=== PATIENT | female | born 1945 | race Caucasian/White ===

== ENCOUNTER 2016-03-17 22:55 | Emergency (ER) | payer MEDICARE, OTHER ==
--- NOTE | 2016-03-17 23:08 | ERPHSYRPT ---
- History of Present Illness Time Seen by Provider: 03/17/16 23:03 Source: patient Exam Limitations: no limitations Physician History: This is a 70-year-old white female she arrives with complaint of sore throat symptoms since this morning she states that this evening she began to be hoarse with her voice she also states that she was having chest heaviness with laying down approximately 40 minutes prior to arrival She has some shortness of breath she has no nausea no vomiting Past medical history includes diverticulitis, GERD, depression, endocarditis. Past surgical history includes cholecystectomy, , tonsillectomy, rhinoplasty with polyps removed. Timing/Duration: today Severity: mild Modifying Factors: Improves With: nothing Associated Symptoms: shortness of breath, chest pain, other (sore throat), No nausea, No vomiting, No abdominal pain, No heartburn, No diaphoresis, No cough, No chills, No fever, No headaches, No loss of appetite, No malaise, No rash, No syncope, No seizure, No weakness Allergies/Adverse Reactions: amoxicillin [Amoxicillin] Allergy (Mild, Verified 03/17/16 23:02) Diarrhea cephalexin monohydrate [From Keflex] Allergy (Mild, Verified 03/17/16 23:02) Diarrhea citalopram hydrobromide [From Celexa] Allergy (Mild, Verified 03/17/16 23:02) Rash itching,n/v sertraline HCl [From Zoloft] Allergy (Mild, Verified 03/17/16 23:02) Rash itching, n/v Home Medications: Cetirizine HCl [Zyrtec] 10 mg PO DAILY 12/13/13 [History] PANTOPRAZOLE 40 mg Tablet [Protonix 40MG Tablet] 40 mg PO DAILY 12/13/13 [ History] Hx Tetanus, Diphtheria Vaccination/Date Given: No Hx Influenza Vaccination/Date Given: No Hx Pneumococcal Vaccination/Date Given: No - Review of Systems Constitutional: No Fever, No Chills Eyes: No Symptoms Ears, Nose, & Throat: Throat Pain, Hoarse, No Ear Pain, No Ear Discharge, No Hearing Changes, No Tinnitus, No Nose Pain, No Nose Congestion, No Nose Discharge, No Sinus Drainage, No Epistaxis, No Mouth Pain, No Mouth Swelling, No Loose Teeth, No Throat Swelling, No Painful Swallowing, No Snoring, No Stridor Respiratory: Dyspnea, No Cough, No Cyanosis, No Dyspnea on Exertion (RODRIGUEZ), No Stridor, No Wheezing Cardiac: Chest Pain (heaviness in chest with laying down 40 minutes ago), No Edema, No Palpitations, No Syncope, No Orthopnea Abdominal/Gastrointestinal: No Abdominal Pain, No Nausea, No Vomiting, No Diarrhea Genitourinary Symptoms: No Dysuria Musculoskeletal: No Back Pain, No Neck Pain Skin: No Rash Neurological: No Dizziness, No Focal Weakness, No Sensory Changes Psychological: No Symptoms Endocrine: No Symptoms All Other Systems: Reviewed and Negative - Past Medical History Pertinent Past Medical History: Yes Neurological History: No Pertinent History ENT History: Other Cardiac History: Other Respiratory History: No Pertinent History Endocrine Medical History: No Pertinent History Musculoskeletal History: Osteoarthritis GI Medical History: Diverticulitis, GERD History: No Pertinent History Psycho-Social History: Depression Female Reproductive Disorders: No Pertinent History Other Medical History: Endocarditis - Past Surgical History Past Surgical History: Yes Cardiac: No Pertinent History Respiratory: No Pertinent History Gastrointestinal: Cholecystectomy Genitourinary: No Pertinent History Musculoskeletal: No Pertinent History Female Surgical History: Section Other Surgical History: tonsillectomy, Rhinoplasty with polyps removed, csection x2, uterine ablasion - Social History Smoking Status: Never smoker Exposure to second hand smoke: No Alcohol Use: None Drug Use: none Patient Lives Alone: No Significant Family History: hypertension - Female History Hx Now: No - Nursing Vital Signs Nursing Vital Signs: Initial Vital Signs Temperature 98.2 F Temperature Source Oral Pulse Rate [] 80 Pulse Rate 76 Respiratory Rate 14 Blood Pressure 144/93 Pain Intensity 1 - Physical Exam General Appearance: no apparent distress, alert Eye Exam: PERRL/EOMI, eyes nml inspection Ears, Nose, Throat Exam: TMs normal, pharynx normal (throat mild erythema), moist mucous membranes, pharyngeal erythema Neck Exam: normal inspection, non-tender, supple, full range of motion Respiratory Exam: normal breath sounds, lungs clear, No respiratory distress Cardiovascular Exam: regular rate/rhythm, normal heart sounds, normal peripheral pulses Gastrointestinal/Abdomen Exam: soft, normal bowel sounds, No tenderness, No mass Back Exam: normal inspection, normal range of motion, No CVA tenderness, No vertebral tenderness Extremity Exam: normal inspection, normal range of motion, pelvis stable Neurologic Exam: alert, oriented x 3, cooperative, normal mood/affect, nml cerebellar function, nml station & gait, sensation nml, No motor deficits Skin Exam: normal color, warm, dry, No rash Lymphatic Exam: No adenopathy SpO2 Interpretation: normal - Course Nursing assessment & vital signs reviewed: Yes EKG Interpreted by Me: RATE (66 bpm), Sinus Rhythm, Other (EKG, sinus rhythm, 66 bpm, axisSI/QIII pattern, no acute ST or T wave changes are noted) - Radiology Exams Chest X-ray Interpretation: Interpreted by me (no acute disease process noted), Negative, No Pneumonia, No Pneumothorax Ordered Tests: Active Orders 24 hr Category Date Time Status Director Of Rot[facility] STAT Care 03/17/16 23:36 Active EKG-ER Only STAT Care 03/17/16 23:36 Active IV Insertion STAT Care 03/17/16 23:36 Active CHEST 1 VIEW (PORTABLE) Stat Exams 03/17/16 23:36 Taken CBC W DIFF Stat Lab 03/17/16 23:30 Completed CMP Stat Lab 03/17/16 23:30 Completed CULTURE, THROAT Stat Lab 03/17/16 23:50 Received STREP SCREEN-BETA A Stat Lab 03/17/16 23:50 Completed TROPONIN Q3H Lab 03/17/16 23:25 Completed TROPONIN Q3H Lab 03/18/16 02:45 Ordered TROPONIN Q3H Lab 03/18/16 05:45 Ordered TROPONIN Q3H Lab 03/18/16 08:45 Ordered TROPONIN Q3H Lab 03/18/16 11:45 Ordered Medication Summary Discontinued Medications Generic Name Dose Route Start Last Admin Trade Name Freq PRN Reason Stop Dose Admin Aspirin 324 mg 03/17/16 23:36 03/17/16 23:48 Baby Aspirin 81 Mg Chew PO 03/17/16 23:37 324 mg STAT ONE Administration Lab/Rad Data: Laboratory Result Diagrams 03/17/16 23:30 03/17/16 23:30 Laboratory Results 03/17/16 03/17/16 03/17/16 Range/Units 23:50 23:30 23:30 WBC 5.7 (4.0-10.5) K/mm3 RBC 4.24 (4.1-5.4) M/mm3 Hgb 13.3 (12.0-16.0) gm/dl Hct 40.3 (35-47) % MCV 95.0 (78-100) fl MCH 31.4 (26-32) pg MCHC 33.0 (32-36) g/dl RDW 13.1 (11.5-14.0) % Plt Count 198 (150-450) K/mm3 MPV 10.0 H (6-9.5) fl Gran % 57.9 (36.0-66.0) % Lymphocytes % 30.9 (24.0-44.0) % Monocytes % 10.1 (0.0-12.0) % Eosinophils % 0.7 (0.00-5.0) % Basophils % 0.4 (0.0-0.4) % Basophils # 0.02 (0-0.4) Sodium 141 (136-145) mEq/L Potassium 3.8 (3.5-5.1) mEq/L Chloride 106 (98-107) mEq/L Carbon Dioxide 27.3 (21-32) mEq/L Anion Gap 11.3 (5-15) MEQ/L BUN 14 (9-20) mg/dL Creatinine 0.99 (0.55-1.30) mg/dl Estimated GFR 59 ML/MIN Glucose 136 H (70-110) MG/DL Calcium 8.7 (8.5-10.1) mg/dL Total Bilirubin 0.5 (0.2-1.0) mg/dL AST 17 (15-37) U/L ALT 17 (12-78) U/L Alkaline Phosphatase 63 (46-116) U/L Troponin I (0.000-0.056) ng/ml Serum Total Protein 6.8 (6.4-8.2) gm/dL Albumin 3.5 (3.4-5.0) g/dL Streptococcus Screen NEGATIVE (Negative) 03/17/16 Range/Units 23:25 WBC (4.0-10.5) K/mm3 RBC (4.1-5.4) M/mm3 Hgb (12.0-16.0) gm/dl Hct (35-47) % MCV (78-100) fl MCH (26-32) pg MCHC (32-36) g/dl RDW (11.5-14.0) % Plt Count (150-450) K/mm3 MPV (6-9.5) fl Gran % (36.0-66.0) % Lymphocytes % (24.0-44.0) % Monocytes % (0.0-12.0) % Eosinophils % (0.00-5.0) % Basophils % (0.0-0.4) % Basophils # (0-0.4) Sodium (136-145) mEq/L Potassium (3.5-5.1) mEq/L Chloride (98-107) mEq/L Carbon Dioxide (21-32) mEq/L Anion Gap (5-15) MEQ/L BUN (9-20) mg/dL Creatinine (0.55-1.30) mg/dl Estimated GFR ML/MIN Glucose (70-110) MG/DL Calcium (8.5-10.1) mg/dL Total Bilirubin (0.2-1.0) mg/dL AST (15-37) U/L ALT (12-78) U/L Alkaline Phosphatase (46-116) U/L Troponin I < 0.017 (0.000-0.056) ng/ml Serum Total Protein (6.4-8.2) gm/dL Albumin (3.4-5.0) g/dL Streptococcus Screen (Negative) - Progress Progress: improved Progress Note: 03/18/16 00:25 Patient with continued sore throat and hoarse voice. Patient's EKG no acute changes sinus rhythm 66 bpm S1/QIII pattern for axis no acute ST or T wave changes. Troponin is normal strep is negative chest x-ray no acute changes no acute disease process white count 5.7 hemoglobin 13 3 hematocrit 40.3 strep is negative chemistry essentially normal I've offered patient repeat troponin she does not want this. Will write for Zithromax patient has had a cough. Diagnosis pharyngitis bronchitis. Patient does not want prednisone she states this will upset her stomach. - Departure Time of Disposition: 00:27 Departure Disposition: Home Clinical Impression: Bronchitis Pharyngitis Qualifiers: Pharyngitis/tonsillitis etiology: unspecified etiology Qualified Code(s): J02.9 - Acute pharyngitis, unspecified Condition: Fair Critical Care Time: No Additional Instructions: Return home. Plenty of fluids. Zithromax Z-LAMONT as directed. Tylenol every 4 hours as needed for pain or temperature greater than 100.5. Follow-up with your family doctor. Return for acute distress or for severe symptoms. Prescriptions: Azithromycin 250 mg [Zithromax 250 MG TABLET] 0 mg PO ZPACK #6 tablet
[2016-03-17] MEDS ORDERED: BABY ASPIRIN 81 MG CHEW PO ONE (23:36)
[2016-03-17 23:41] LABS: BASOPHIL % 0.4 % (0.0-0.4); Eosinophil % 0.7 % (0.00-5.0); Granulocytes % 57.9 % (36.0-66.0); Lymphocytes % 30.9 % (24.0-44.0); Mean Corpuscular Hemoglobin 31.4 pg (26-32); Monocytes % 10.1 % (0.0-12.0); Platelet Count 198 K/mm3 (150-450); Red Blood Count 4.24 M/mm3 (4.1-5.4); Red Cell Distribution Width 13.1 % (11.5-14.0); White Blood Count 5.7 K/mm3 (4.0-10.5)
[2016-03-17 23:58] LABS: ALBUMIN 3.5 g/dL (3.4-5.0); ANION GAP 11.3 MEQ/L (5-15); BILIRUBIN,TOTAL 0.5 mg/dL (0.2-1.0); Carbon Dioxide 27.3 mEq/L (21-32); Potassium 3.8 mEq/L (3.5-5.1); Total Protein 6.8 gm/dL (6.4-8.2)
[2016-03-18] MEDS ORDERED: Zithromax 250 MG TABLET ONE (00:30)
[2016-03-18] MEDS ORDERED: Zithromax 250 MG TABLET PO ONE (00:30)
[2016-03-18] MEDS: Zithromax 250 MG TABLET PO ONE (00:33)
[2016-03-18] MEDS ORDERED: solu-MEDROL 125 MG IV ONE (00:35)
[2016-03-18] MEDS ORDERED: solu-MEDROL 125 MG ONE (00:37)
[2016-03-18 00:58] VITALS: BP 136/88; PULSE 90; O2SAT 98
[2016-03-18] MEDS ORDERED: BABY ASPIRIN 81 MG CHEW ONE (05:23)
--- NOTE | 2016-03-18 08:52 | XRAY ---
Indication: Chest pain. Comparison: December 11, 2012 Portable chest demonstrates stable blunting of the left costophrenic angle. No focal infiltrate, consolidation, or large effusion. Heart is not enlarged. Bony thorax intact again with mild osteopenia. Impression: Stable nonacute chest with chronic features.
== END 2016-03-18 00:57 | disposition home or self-care (01) ==
LOC: ED 22:55
DX: J02.9 Acute pharyngitis, unspecified (principal); J40 Bronchitis, not specified as acute or chronic
CPT/HCPCS: 36000; 36415; 71010; 80053; 84484; 85025; 87070; 87430; 93005; 93041; 96374; 99284; J2930

== ENCOUNTER 2017-05-25 09:11 | Emergency (ER) | payer MEDICARE, OTHER ==
--- NOTE | 2017-05-25 09:43 | ERPHSYRPT ---
- History of Present Illness Time Seen by Provider: 05/25/17 09:34 Source: patient, family Patient Subjective Stated Complaint: states was up on a chair last night and fell. pain to right wrist, right knee and lower leg, and left foot. denies striking head Triage Nursing Assessment: to room per w/c. skin w/d, color normal, resp easy. swelling and slight deformity noted to right wrist. good radial pulse and cap refill. no deformity noted to right knee, good pedal pulse. bruise noted to top of right foot. tender to touch. good pedal pulse Physician History: CC: fall Hx: 71 y/o patient of Dr Ross fell yesterday onto carpet while trying to climb onto a chair. Pain in right wrist and knee and left foot. No other injuries. No neck or back pain. No N/T/W. Hurts to walk. Occurred: yesterday Reason for Fall: lost balance Loss of Consciousness: no loss of consciousness Allergies/Adverse Reactions: amoxicillin [Amoxicillin] Allergy (Mild, Verified 03/17/16 23:02) Diarrhea cephalexin monohydrate [From Keflex] Allergy (Mild, Verified 03/17/16 23:02) Diarrhea citalopram hydrobromide [From Celexa] Allergy (Mild, Verified 03/17/16 23:02) Rash itching,n/v sertraline HCl [From Zoloft] Allergy (Mild, Verified 03/17/16 23:02) Rash itching, n/v Home Medications: Cetirizine HCl [Zyrtec] 10 mg PO DAILY 12/13/13 [History] PANTOPRAZOLE 40 mg Tablet [Protonix 40MG Tablet] 40 mg PO DAILY 12/13/13 [ History] Latanoprost [Xalatan] 2.5 ml OP HS 05/25/17 [History] Hx Tetanus, Diphtheria Vaccination/Date Given: No Hx Influenza Vaccination/Date Given: No Hx Pneumococcal Vaccination/Date Given: No - Review of Systems Constitutional: No Symptoms Eyes: No Vision Changes Respiratory: No Dyspnea Cardiac: No Chest Pain Abdominal/Gastrointestinal: No Abdominal Pain, No Nausea, No Vomiting Musculoskeletal: Fall, Injury, No Back Pain, No Neck Pain Skin: No Rash Neurological: No Focal Weakness, No Headache, No Parasthesia All Other Systems: Reviewed and Negative - Past Medical History Pertinent Past Medical History: Yes Neurological History: No Pertinent History ENT History: Glaucoma Cardiac History: Other Respiratory History: No Pertinent History Endocrine Medical History: No Pertinent History Musculoskeletal History: Osteoarthritis GI Medical History: Diverticulitis, GERD History: No Pertinent History Psycho-Social History: Depression Female Reproductive Disorders: No Pertinent History Other Medical History: Endocarditis - Past Surgical History Past Surgical History: Yes Cardiac: No Pertinent History Respiratory: No Pertinent History Gastrointestinal: Cholecystectomy Genitourinary: No Pertinent History Musculoskeletal: No Pertinent History Female Surgical History: Section Other Surgical History: tonsillectomy, Rhinoplasty with polyps removed, csection x2, uterine ablasion - Social History Smoking Status: Never smoker Exposure to second hand smoke: No Alcohol Use: None Drug Use: none Patient Lives Alone: No Significant Family History: hypertension - Female History Hx Now: No - Nursing Vital Signs Nursing Vital Signs: Initial Vital Signs Temperature 97.4 F 05/25/17 09:20 Pulse Rate 79 05/25/17 09:20 Respiratory Rate 16 05/25/17 09:20 Blood Pressure 156/70 05/25/17 09:20 O2 Sat by Pulse Oximetry 95 05/25/17 09:20 Pain Scale Pain Intensity 5 - Conifer Coma Score Best Eye Response (Flaco): (4) open spontaneously Best Verbal Response (Flaco): (5) oriented Best Motor Response (Flaco): (6) obeys commands Conifer Total: 15 - Physical Exam General Appearance: alert Head Injury: no evidence of injury Eye Exam: PERRL/EOMI ENT Exam: airway nml Neck Exam: supple, No mid-line tenderness Respiratory/Chest Exam: normal breath sounds, No chest tenderness Cardiovascular Exam: regular rate/rhythm Gastrointestinal Exam: soft, No tenderness, No distention Back Exam: normal inspection, No vertebral tenderness Extremity Exam: tenderness (right distal radius with some swelling, left foot MTP, right knee. ROM all intact.) Neurologic Exam: alert, oriented x 3, cooperative, sensation nml, No motor deficits Skin Exam: warm, dry, No rash SpO2 Interpretation: normal SpO2: 95 Oxygen Delivery: Room Air - Course Nursing assessment & vital signs reviewed: Yes Ordered Tests: Active Orders 24 hr Category Date Time Status Chalo Bandage Application -[facility] STAT Care 05/25/17 10:16 Active Cold Application STAT Care 05/25/17 09:38 Active Splint STAT Care 05/25/17 10:15 Active Splint STAT Care 05/25/17 10:16 Active FOOT (MINIMUM 3 VIEWS) Stat Exams 05/25/17 09:39 Taken KNEE (3 VIEWS) Stat Exams 05/25/17 09:39 Taken WRIST (MIN 3 VIEWS) Stat Exams 05/25/17 09:39 Taken - Progress Progress Note: 05/25/17 10:17 Pt declines pain meds here. 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 Left foot has possible nondisplaced fx left 4th toe proximal phalynx. Will splint. Instr given. Counseled pt/family regarding: diagnosis, need for follow-up, rad results - Departure Time of Disposition: 10:18 Departure Disposition: Home Clinical Impression: Fracture of fourth toe, left, closed, Sprain of right wrist, Sprain of right knee, Fall from chair Condition: Stable Critical Care Time: No Referrals: ILIA ROSS [Primary Care Provider] - Instructions: Preventing Falls, Sprain (DC), Contusion (DC) Additional Instructions: SPRAINS/STRAINS/CONTUSIONS 1. Rest the affected area as much as possible for the next few days. 2. Apply ice to the affected area for 20-30 minutes at a time, several times a day. 3. If you receive an elastic wrap, wear it only while awake for comfort and support. Re-wrap the elastic wrap if it feels too tight or too loose. 4. If swelling is present, elevate the affected part above the level of the heart for at least 2 to 3 days. 5. Use splints, slings, or crutches as instructed. 6. Watch for severe swelling, coldness, numbness, and discoloration of the fingers and toes. See your family physician or return to the emergency department if any of these are noted. Right wrist splint Right knee chalo wrap LEft foot shoe. Use tylenol or ibuprofen as directed Ice packs off and on Follow up with Dr Ross
[2017-05-25 10:46] VITALS: BP 145/84; PULSE 84; O2SAT 99
--- NOTE | 2017-05-25 11:38 | XRAY ---
Indication: Pain following fall. Comparison: None 3 views of the right knee demonstrates mild osteopenia. No other bony, articular, or soft tissue abnormalities.
--- NOTE | 2017-05-25 11:41 | XRAY ---
Indication: Pain following fall. Comparison: None 3 views of the right wrist demonstrates osteopenia and moderate/advanced degenerative changes of the 1st metacarpal multangular articulation with lesser degenerative changes of all IP joints. No other bony, articular, or soft tissue abnormalities.
--- NOTE | 2017-05-25 11:44 | XRAY ---
Indication: Fourth digit pain following fall. Comparison: November 11, 2008. 3 nonweightbearing views of the left foot demonstrates new nondisplaced corner fractures involving the base of the 2nd/4th proximal phalanges, medial aspect. Elsewhere stable mild osteopenia, posterior heel spur, and cuboid accessory ossicle.
== END 2017-05-25 10:46 | disposition home or self-care (01) ==
LOC: ED 09:11
DX: S92.512A Displaced fracture of proximal phalanx of left lesser toe(s), initial encounter for closed fracture (principal); S63.501A Unspecified sprain of right wrist, initial encounter; S83.91XA Sprain of unspecified site of right knee, initial encounter; W19.XXXA Unspecified fall, initial encounter
CPT/HCPCS: 73110; 73562; 73630; 99283; 99284; L3908

== ENCOUNTER 2017-07-13 21:36 | Emergency (ER) | payer MEDICARE, OTHER ==
--- NOTE | 2017-07-13 22:37 | ERPHSYRPT ---
- History of Present Illness Time Seen by Provider: 07/13/17 22:37 Source: patient Exam Limitations: no limitations Patient Subjective Stated Complaint: SUDDEN ONSET OF SHARP PAIN IN LEFT SIDE OF HEAD LASTING ONLY A FEW SECONDS. NOW RESIDUAL PAIN TO LEFT POSTERIOR HEAD. NOLOC .DENIES DIFFICULTY WITH SPEECH, WALKING OR MOVEMENT Triage Nursing Assessment: ALERT AND ANXIOUS. ABLE TO WALK TO BED WITH NO DIFFICULTY. DESTIN academic support assistant =. KOENIG neuro intact. pain to left posterior head. had migraine years ago. Physician History: PT FELL 2 WEEKS AGO AND SINCE HAS HAD INTERMITTENT HEADACHES LASTING UP TO 40 MINUTES PER EPISODE AND WORSE NECK PAIN. PT ALSO HAS HAD SINUS PRESSURE AND EAR PRESSURE FOR THE PAST 2 WEEKS. Allergies/Adverse Reactions: amoxicillin [Amoxicillin] Allergy (Mild, Verified 03/17/16 23:02) Diarrhea cephalexin monohydrate [From Keflex] Allergy (Mild, Verified 03/17/16 23:02) Diarrhea citalopram hydrobromide [From Celexa] Allergy (Mild, Verified 03/17/16 23:02) Rash itching,n/v sertraline HCl [From Zoloft] Allergy (Mild, Verified 03/17/16 23:02) Rash itching, n/v Home Medications: Cetirizine HCl [Zyrtec] 10 mg PO DAILY 12/13/13 [History] PANTOPRAZOLE 40 mg Tablet [Protonix 40MG Tablet] 40 mg PO DAILY 12/13/13 [ History] Latanoprost [Xalatan] 2.5 ml OP HS 05/25/17 [History] Hx Tetanus, Diphtheria Vaccination/Date Given: No Hx Influenza Vaccination/Date Given: No Hx Pneumococcal Vaccination/Date Given: No Immunizations Up to Date: (unknown) - Review of Systems Ears, Nose, & Throat: Other (SINUS PRESSURE AND EAR PRESSURE) Musculoskeletal: Neck Pain Neurological: Headache All Other Systems: Reviewed and Negative - Past Medical History Pertinent Past Medical History: Yes Neurological History: Migraines ENT History: Glaucoma Cardiac History: Other Respiratory History: No Pertinent History Endocrine Medical History: No Pertinent History Musculoskeletal History: Osteoarthritis GI Medical History: Diverticulitis, GERD History: No Pertinent History Psycho-Social History: Depression Female Reproductive Disorders: No Pertinent History Other Medical History: Endocarditis - Past Surgical History Past Surgical History: Yes Cardiac: No Pertinent History Respiratory: No Pertinent History Gastrointestinal: Cholecystectomy Genitourinary: No Pertinent History Musculoskeletal: No Pertinent History Female Surgical History: Section Other Surgical History: tonsillectomy, Rhinoplasty with polyps removed, csection x2, uterine ablasion - Social History Smoking Status: Never smoker Exposure to second hand smoke: No Alcohol Use: None Drug Use: none Patient Lives Alone: No Significant Family History: hypertension - Female History Hx Now: No - Nursing Vital Signs Nursing Vital Signs: Initial Vital Signs Temperature 97.8 F 07/13/17 21:50 Pulse Rate 97 H 07/13/17 21:50 Respiratory Rate 20 07/13/17 21:50 Blood Pressure 196/101 07/13/17 21:50 O2 Sat by Pulse Oximetry 97 07/13/17 21:50 Pain Scale Pain Intensity 0 - Physical Exam General Appearance: alert Eye Exam: PERRL/EOMI Ears, Nose, Throat Exam: TMs normal, pharynx normal, moist mucous membranes Neck Exam: normal inspection Respiratory Exam: lungs clear Cardiovascular Exam: normal heart sounds Gastrointestinal/Abdomen Exam: soft, normal bowel sounds Back Exam: normal range of motion Extremity Exam: normal inspection, No pedal edema Neurologic Exam: alert, cooperative, normal mood/affect, sensation nml, No motor deficits, No motor weakness Skin Exam: warm, dry SpO2 Interpretation: normal SpO2: 96 Oxygen Delivery: Room Air - Course Nursing assessment & vital signs reviewed: Yes EKG Interpreted by Me: RATE (92), NORMAL AXIS, NORMAL INTERVALS - CT Exams Head CT Interpretation: Tele-radiologist Report (NO ACUTE INTRACRANIAL FINDINGS) Cervical Spine CT Interpretation: Tele-radiologist Report (NEGATIVE FOR FRACTURE OR DISLOCATION.) Ordered Tests: Active Orders 24 hr Category Date Time Status Clean Catch Urine Specimen STAT Care 07/13/17 23:33 Active EKG-ER Only STAT Care 07/13/17 22:15 Active IV Insertion STAT Care 07/13/17 22:15 Active CERVICAL SPINE WO CONTRAST [CT] Stat Exams 07/13/17 22:48 Taken CHEST 2 VIEWS (PA AND LAT) Stat Exams 07/14/17 12:27 Taken HEAD WITHOUT CONTRAST [CT] Stat Exams 07/13/17 22:47 Taken CBC W DIFF Stat Lab 07/13/17 22:30 Completed CMP Stat Lab 07/13/17 22:30 Completed MAGNESIUM Stat Lab 07/13/17 22:30 Completed TROPONIN Q3H Lab 07/13/17 22:30 Completed TROPONIN Q3H Lab 07/14/17 02:00 Ordered TROPONIN Q3H Lab 07/14/17 05:00 Ordered TROPONIN Q3H Lab 07/14/17 08:00 Ordered TROPONIN Q3H Lab 07/14/17 11:00 Ordered UA W/RFX UR CULTURE Stat Lab 07/13/17 23:30 Completed Medication Summary Discontinued Medications Generic Name Dose Route Start Last Admin Trade Name Jayden PRN Reason Stop Dose Admin Clonidine 0.1 mg 07/13/17 23:39 07/13/17 23:44 Catapres 0.1 Mg PO 07/13/17 23:40 0.1 mg STAT ONE Administration Clonidine Confirm 07/13/17 23:43 Catapres 0.1 Mg Administered 07/13/17 23:44 Dose 0.1 mg .ROUTE .VeriTainer ONE Lab/Rad Data: Laboratory Result Diagrams 07/13/17 22:30 07/13/17 22:30 Laboratory Results 07/13/17 07/13/17 07/13/17 Range/Units 23:30 22:30 22:30 WBC (4.0-10.5) K/mm3 RBC (4.1-5.4) M/mm3 Hgb (12.0-16.0) gm/dl Hct (35-47) % MCV (78-100) fl MCH (26-32) pg MCHC (32-36) g/dl RDW (11.5-14.0) % Plt Count (150-450) K/mm3 MPV (6-9.5) fl Gran % (36.0-66.0) % Eos # (Auto) (0-0.5) Absolute Lymphs (auto) (1.0-4.6) Absolute Monos (auto) (0.0-1.3) Lymphocytes % (24.0-44.0) % Monocytes % (0.0-12.0) % Eosinophils % (0.00-5.0) % Basophils % (0.0-0.4) % Absolute Granulocytes (1.4-6.9) Basophils # (0-0.4) Sodium 138 (137-145) mmol/L Potassium 4.2 (3.5-5.1) mmol/L Chloride 101 (98-107) mmol/L Carbon Dioxide 26 (22-30) mmol/L Anion Gap 16.0 H (5-15) MEQ/L BUN 20 H (7-17) mg/dL Creatinine 0.74 (0.52-1.04) mg/dL Estimated GFR > 60.0 ML/MIN Glucose 164 H (74-106) mg/dL Calcium 9.2 (8.4-10.2) mg/dL Magnesium 2.2 (1.6-2.3) mg/dL Total Bilirubin 1.20 (0.2-1.3) mg/dL AST 46 H (14-36) U/L ALT 23 (0-35) U/L Alkaline Phosphatase 86 (38-126) U/L Troponin I < 0.012 (0.000-0.034) ng/mL Serum Total Protein 7.6 (6.3-8.2) g/dL Albumin 4.2 (3.5-5.0) g/dL Ur Collection Type CLEAN CATCH Urine Color YELLOW (YELLOW) Urine Appearance CLEAR (CLEAR) Urine pH 5.0 (5-6) Ur Specific [place] 1.015 (1.005-1.025) Urine Protein NEGATIVE (Negative) Urine Ketones NEGATIVE (NEGATIVE) Urine Blood NEGATIVE (0-5) Ahnk/ul Urine Nitrite NEGATIVE (NEGATIVE) Urine Bilirubin NEGATIVE (NEGATIVE) Urine Urobilinogen 1 (0-1) mg/dL Ur Leukocyte Esterase NEGATIVE (NEGATIVE) Urine Culture Reflexed NO (NO) Urine Glucose NEGATIVE (NEGATIVE) mg/dL Specimen Received 07/13/17 2330 07/13/17 Range/Units 22:30 WBC 8.2 (4.0-10.5) K/mm3 RBC 4.44 (4.1-5.4) M/mm3 Hgb 14.2 (12.0-16.0) gm/dl Hct 42.3 (35-47) % MCV 95.3 (78-100) fl MCH 32.0 (26-32) pg MCHC 33.6 (32-36) g/dl RDW 12.5 (11.5-14.0) % Plt Count 212 (150-450) K/mm3 MPV 10.1 H (6-9.5) fl Gran % 67.3 H (36.0-66.0) % Eos # (Auto) 0.05 (0-0.5) Absolute Lymphs (auto) 1.83 (1.0-4.6) Absolute Monos (auto) 0.81 (0.0-1.3) Lymphocytes % 22.2 L (24.0-44.0) % Monocytes % 9.8 (0.0-12.0) % Eosinophils % 0.6 (0.00-5.0) % Basophils % 0.1 (0.0-0.4) % Absolute Granulocytes 5.54 (1.4-6.9) Basophils # 0.01 (0-0.4) Sodium (137-145) mmol/L Potassium (3.5-5.1) mmol/L Chloride (98-107) mmol/L Carbon Dioxide (22-30) mmol/L Anion Gap (5-15) MEQ/L BUN (7-17) mg/dL Creatinine (0.52-1.04) mg/dL Estimated GFR ML/MIN Glucose (74-106) mg/dL Calcium (8.4-10.2) mg/dL Magnesium (1.6-2.3) mg/dL Total Bilirubin (0.2-1.3) mg/dL AST (14-36) U/L ALT (0-35) U/L Alkaline Phosphatase (38-126) U/L Troponin I (0.000-0.034) ng/mL Serum Total Protein (6.3-8.2) g/dL Albumin (3.5-5.0) g/dL Ur Collection Type Urine Color (YELLOW) Urine Appearance (CLEAR) Urine pH (5-6) Ur Specific [place] (1.005-1.025) Urine Protein (Negative) Urine Ketones (NEGATIVE) Urine Blood (0-5) Hank/ul Urine Nitrite (NEGATIVE) Urine Bilirubin (NEGATIVE) Urine Urobilinogen (0-1) mg/dL Ur Leukocyte Esterase (NEGATIVE) Urine Culture Reflexed (NO) Urine Glucose (NEGATIVE) mg/dL Specimen Received - Departure Time of Disposition: 01:35 Departure Disposition: Home Clinical Impression: HTN, HEADACHE, ARTHRITIS, GERD, DEPRESSION Condition: Stable Critical Care Time: No Referrals: ILIA ROSS [Primary Care Provider] - Instructions: Malignant Hypertension (DC), Headache, Adult (DC) Additional Instructions: FOLLOW UP WITH PRIVATE DOCTOR TOMORROW.
[2017-07-13 23:01] LABS: BASOPHIL % 0.1 % (0.0-0.4); Basophil (Absolute #) 0.01 (0-0.4); Eosinophil % 0.6 % (0.00-5.0); Eosinophil (Absolute #) 0.05 (0-0.5); Granulocyte Absolute (ANC) 5.54 (1.4-6.9); Granulocytes % 67.3 % (36.0-66.0); Hematocrit 42.3 % (35-47); Hemoglobin 14.2 gm/dl (12.0-16.0); Lymphocyte (Absolute #) 1.83 (1.0-4.6); Lymphocytes % 22.2 % (24.0-44.0); Mean Cell Volume 95.3 fl (78-100); Mean Corpuscular Hgb Concent. 33.6 g/dl (32-36); Mean Platelet Volume 10.1 fl (6-9.5); Monocyte (Absolute #) 0.81 (0.0-1.3); Monocytes % 9.8 % (0.0-12.0); Platelet Count 212 K/mm3 (150-450); Red Blood Count 4.44 M/mm3 (4.1-5.4); Red Cell Distribution Width 12.5 % (11.5-14.0); White Blood Count 8.2 K/mm3 (4.0-10.5)
[2017-07-13 23:06] LABS: ALBUMIN 4.2 g/dL (3.5-5.0); ALKALINE PHOSPHATASE 86 U/L (38-126); BLOOD UREA NITROGEN 20 mg/dL (7-17); CHLORIDE 101 mmol/L (98-107); Calcium 9.2 mg/dL (8.4-10.2); Carbon Dioxide 26 mmol/L (22-30); Creatinine 1 0.74 mg/dL (0.52-1.04); Glucose 164 mg/dL (74-106); Potassium 4.2 mmol/L (3.5-5.1); SGOT/AST 46 U/L (14-36); SGPT/ALT 23 U/L (0-35); SODIUM 138 mmol/L (137-145); Total Protein 7.6 g/dL (6.3-8.2)
[2017-07-13] MEDS ORDERED: Catapres 0.1 MG PO ONE (23:39)
[2017-07-13] MEDS ORDERED: Catapres 0.1 MG ONE (23:43)
[2017-07-14 01:08] LABS: Appearance CLEAR (CLEAR); Bilirubin NEGATIVE (NEGATIVE); Blood NEGATIVE Ery/ul (0-5); Glucose NEGATIVE (NEGATIVE); Ketones NEGATIVE (NEGATIVE); Leukocyte Esterase NEGATIVE (NEGATIVE); Nitrite NEGATIVE (NEGATIVE); Protein,Urine Dip NEGATIVE (Negative); Specific Gravity 1.015 (1.005-1.025); Urobilinogen 1 mg/dL (0-1)
[2017-07-14 02:03] VITALS: BP 125/80; PULSE 76; O2SAT 94
--- NOTE | 2017-07-14 09:09 | XRAY ---
Indication: Left posterior pain following fall. Multiple contiguous axial images obtained through the head without contrast. Comparison: April 18, 2007. Again normal appearing brain parenchyma, ventricles, and bony calvarium. Visualized paranasal sinuses and mastoid air cells are clear. Impression: Stable normal CT head without contrast exam. Comment: Preliminary interpretation was made by [facility]. No discrepancy. CTDI 65.67
--- NOTE | 2017-07-14 09:12 | XRAY ---
Indication: Hypertension. Comparison: March 17, 2016. PA/lateral chest again demonstrates left base fibrosis/scarring. Remaining heart and lungs unremarkable. Stable osteopenia, mild degenerative changes, and minimal scoliosis. Impression: Stable nonacute chest with chronic features.
--- NOTE | 2017-07-14 09:14 | XRAY ---
Indication: Left posterior pain following fall. Multiple contiguous axial images obtained through the cervical spine. Sagittal and coronal reformatted images obtained. Comparison: None. Axial images negative for acute fracture, suspicious bony lesions, or spinal canal stenosis. Mild/moderate C5-T1 degenerative endplate spurring. Also multilevel bilateral degenerative facet arthropathy, left greater than right. Sagittal and coronal reformatted images demonstrates cervical lordotic straightening, positional versus paraspinal spasm. C5-T1 disc space narrowing. No acute compression fracture, subluxation, or jumped facet. Normal-appearing craniocervical junction. Visualized noncontrasted soft tissues including lung apices unremarkable. CT head reported separately. Impression: 1. Negative acute fracture/subluxation. 2. Cervical lordotic straightening, positional versus paraspinal spasm. 3. Multilevel degenerative changes. Comment: Preliminary interpretation was made by [facility]. No discrepancy. CTDI 116.95
== END 2017-07-14 02:01 | disposition home or self-care (01) ==
LOC: ED 21:36
DX: I10 Essential (primary) hypertension (principal); R51 Headache; M54.2 Cervicalgia; M19.90 Unspecified osteoarthritis, unspecified site; K21.9 Gastro-esophageal reflux disease without esophagitis; F32.9 Major depressive disorder, single episode, unspecified; Z79.899 Other long term (current) drug therapy
CPT/HCPCS: 36000; 36415; 70450; 71046; 72125; 80053; 81002; 83735; 84484; 85025; 93005; 99284; A9270-GY

== ENCOUNTER 2018-07-20 08:17 | Day surgery (SDC) | payer MEDICARE, OTHER ==
[~2018-07-20 08:17] MED LIST: Lactated Ringers 1,000 ML IV SCH
[2018-07-20] MEDS ORDERED: DIPRIVAN 200 MG/20 ML IV ONE (08:18)
[2018-07-20] MEDS ORDERED: Ketamine HCl 50 MG/ML IV ONE (08:18)
--- NOTE | 2018-07-20 10:20 | HP ---
DATE OF SURGERY: 07/20/2018 HISTORY OF PRESENT ILLNESS: The patient is a 72 year-old with two week history of epigastric pain for a week and improved some. She had epigastric pain again with question of burning or reflux. She is in need of upper endoscopy for further evaluation. PAST MEDICAL HISTORY: She has had some reflux. PAST SURGICAL HISTORY: Tonsillectomy. Laparoscopic hysterectomy and tubal in the past. Two sections in the past. MEDICATIONS: Pantoprazole, cetirizine, Latanoprost eye drops. ALLERGIES: AMOXICILLIN, ZOLOFT, CELEXA. FAMILY HISTORY: A brother with melanoma. Brother with heart valve problems. SOCIAL HISTORY: No smoking or alcohol abuse. REVIEW OF SYSTEMS: Twelve systems reviewed. No chest pain or palpitations other systems negative or noncontributory as above and per preadmission questionnaire. PHYSICAL EXAMINATION: GENERAL: No acute distress. HEENT: Sclerae nonicteric. NECK: No JVD. CHEST: Equal excursion, nonlabored breathing. CVS: Regular rate and rhythm. ABDOMEN: Soft. No peritoneal signs. EXTREMITIES: No significant edema. NEURO: Alert, oriented, moving extremities symmetrically. No gross motor deficits noted. IMPRESSION: Epigastric pain and burning unclear whether esophagitis, gastritis, peptic ulcer disease or other etiology. I feel she will benefit from upper endoscopy for further evaluation. Risks and benefits explained in detail including but not limited to bleeding or infection, small risk of bowel injury or perforation possibly requiring open procedure, risk of missed or nondiagnosis or incomplete exam possibly requiring barium swallow, other studies or procedures, general risk of anesthesia or sedation but not limited to. She understands and agrees to the planned procedure, will proceed with outpatient EGD and possible biopsy.
[2018-07-20 11:36] VITALS: O2SAT 97
[2018-07-20 11:45] VITALS: BP 154/76; PULSE 63
--- NOTE | 2018-07-20 12:53 | OP ---
SURGERY DATE/TIME: 07/20/2018 1030 PREOPERATIVE DIAGNOSIS: History of epigastric pain and burning. POSTOPERATIVE DIAGNOSES: 1) Mild gastritis. 2) Gastric polyps. PROCEDURES: 1) EGD with cold biopsy of the small bowel to evaluate for celiac sprue. 2) Cold biopsy of the antrum to evaluate for Helicobacter pylori. 3) Cold biopsy distal esophagus to evaluate for eosinophilic esophagitis. 4) Hot snare polypectomy gastric polyp. SURGEON: Dr. Aaron Foote. ANESTHESIA: MAC. ESTIMATED BLOOD LOSS: Minimal. INDICATIONS: As noted above. Risks and benefits explained in detail and not limited to and consent obtained. DESCRIPTION OF PROCEDURE AND FINDINGS: The patient is taken to the operating room. MAC anesthesia introduced. After official time out and no disagreement with planned procedure, a bite block positioned. Video gastroscope easily passed down the esophagus through the patent pylorus to the junction of the second and third portion of the duodenum. Duodenum and duodenal bulb grossly unremarkable. Cold biopsy taken to evaluate for celiac sprue. Good hemostasis noted. The scope pulled back into the stomach and it had some erythema, some mild gastritis. There was no evidence of any ulcers. Cold biopsy taken of the antrum to evaluate for Helicobacter pylori. Otherwise the patient had smooth appearing fundal gland polyps, one was larger. It was felt this needed to be sent for pathology. It was removed with hot snare polypectomy with brief bursts of cautery. Good hemostasis noted. On retroflex she did not appear to have any significant hiatal hernia that could be visualized endoscopically. On retroflexion, the scope was straightened. There were no signs of any ulcers, no signs of any masses, just the fundal gland polyps which larger sent for pathology. The scope pulled back gastroesophageal junction about 37 cm. Z-line was fairly crisp. There were no signs of any significant erosion. No signs of any kelli Araujo's but given her complaints some random cold biopsies were taken of the esophagus to evaluate eosinophilic esophagitis. The scope was withdrawn. Again, no evidence of any mass but did have mild erythema proximal esophagus likely from passing the scope through there. No evidence of any masses at this time. The scope is withdrawn. The patient tolerated the procedure well. There were no immediate complications. Findings discussed with her in the waiting area.
== END 2018-07-20 11:45 | disposition home or self-care (01) ==
LOC: SDC 08:17
PROVIDERS: ATTEND Surgery
DX: K29.50 Unspecified chronic gastritis without bleeding (principal); K31.7 Polyp of stomach and duodenum
CPT/HCPCS: 88305; 99100; J2704

== ENCOUNTER 2019-11-02 17:53 | Emergency (ER) | payer MEDICARE, OTHER ==
[2019-11-02 19:16] LABS: Appearance SLIGHTLY CLOUDY (CLEAR); Bilirubin NEGATIVE (NEGATIVE); Blood NEGATIVE Ery/ul (0-5); Epithelial Cells RARE /HPF (FEW); Glucose NEGATIVE (NEGATIVE); Hyaline Casts 0-2 /LPF (0-2); Ketones NEGATIVE (NEGATIVE); Leukocyte Esterase TRACE (NEGATIVE); Mucus SLIGHT /HPF (NEGATIVE); Nitrite NEGATIVE (NEGATIVE); Protein,Urine Dip NEGATIVE (Negative); Specific Gravity 1.019 (1.005-1.025); Urobilinogen NEGATIVE mg/dL (0-1)
--- NOTE | 2019-11-02 20:56 | ERPHSYRPT ---
- History of Present Illness Time Seen by Provider: 11/02/19 18:15 Source: patient Exam Limitations: no limitations Patient Subjective Stated Complaint: Pelvic pain Triage Nursing Assessment: Patient ambulated back to ED and transferred self to bed. Patient A+O X 3. Patient's skin pink, warm and dry. Patient states at 4 pm she started having sharp pain in her pelvic/groin area 11/24. Patient denies bleeding. Patient states she was having trouble urinating earlier. Physician History: Patient is a 73-year-old female presents to our ED with complaints of vaginal pain. Patient states she is experiencing a sharp burning sensation in her vagina. Patient states symptoms started after applying cornstarch to the involved area. Patient had some urinary hesitancy today. No abdominal pain. No diarrhea. No nausea no vomiting. No vaginal discharge. Patient states her vaginal ambrose are noncompliant and difficult to spread for exams. Patient believes she has endometriosis. No fever. No vaginal trauma. No foul order. Patient declined pain medication. Patient voices no other complaints at this time. Timing/Duration: yesterday Activites at Onset: none Quality: burning Onset Location: vaginal, vulvar pain Pain Radiation: none Severity of Pain-Max: moderate Severity of Pain-Current: mild Sexual intercourse history: non-contributory Modifying Factors: Improves With: nothing Associated Symptoms: other (No urgency.) Allergies/Adverse Reactions: amoxicillin [Amoxicillin] Allergy (Mild, Verified 11/02/19 18:09) Diarrhea citalopram hydrobromide [From Celexa] Allergy (Mild, Verified 11/02/19 18:09) Rash itching,n/v sertraline HCl [From Zoloft] Allergy (Mild, Verified 11/02/19 18:09) Rash itching, n/v Home Medications: Cetirizine HCl [Zyrtec] 10 mg PO DAILY 12/13/13 [History] PANTOPRAZOLE 40 mg Tablet [Protonix 40MG Tablet] 40 mg PO DAILY 12/13/13 [History] Latanoprost [Xalatan] 2.5 ml OP HS 05/25/17 [History] Hx Tetanus, Diphtheria Vaccination/Date Given: No Hx Influenza Vaccination/Date Given: No Hx Pneumococcal Vaccination/Date Given: No Travel Risk - International Travel Have you traveled outside of the country in past 3 weeks: No - Coronavirus Screening Are you exhibiting any of the following symptoms?: No Close contact with a COVID-19 positive Pt in past 14-21 Days: No - Review of Systems Constitutional: No Symptoms, No Fever, No Chills Eyes: No Symptoms Ears, Nose, & Throat: No Symptoms Respiratory: No Symptoms, No Cough, No Dyspnea Cardiac: No Symptoms, No Chest Pain, No Edema, No Syncope Abdominal/Gastrointestinal: No Symptoms, No Abdominal Pain, No Nausea, No Vomiting, No Diarrhea Genitourinary Symptoms: No Symptoms, No Dysuria Musculoskeletal: No Symptoms, No Back Pain, No Neck Pain Skin: No Symptoms, No Rash Neurological: No Symptoms, No Dizziness, No Focal Weakness, No Sensory Changes Psychological: No Symptoms Endocrine: No Symptoms Hematologic/Lymphatic: No Symptoms Immunological/Allergic: No Symptoms All Other Systems: Reviewed and Negative - Past Medical History Pertinent Past Medical History: Yes Neurological History: No Pertinent History ENT History: Glaucoma Cardiac History: Angina Respiratory History: No Pertinent History Endocrine Medical History: No Pertinent History Musculoskeletal History: Osteoarthritis GI Medical History: Diverticulitis, GERD History: No Pertinent History Psycho-Social History: No Pertinent History Female Reproductive Disorders: No Pertinent History Other Medical History: Neck pain due to OA. pt states "angina was R/O as heart related" testing was completed per pt. studies are on the chart. epigastric/chest pain - Past Surgical History Past Surgical History: Yes Neuro Surgical History: No Pertinent History Cardiac: Cardiac Catheterization Respiratory: No Pertinent History Gastrointestinal: Cholecystectomy Genitourinary: No Pertinent History Musculoskeletal: No Pertinent History Female Surgical History: Section, Tubal Ligation Other Surgical History: tonsillectomy, Rhinoplasty with polyps removed, csection x2, uterine ablasion - Social History Smoking Status: Never smoker Exposure to second hand smoke: No Alcohol Use: None Drug Use: none Patient Lives Alone: No Significant Family History: hypertension - Female History Hx Now: No - Nursing Vital Signs Nursing Vital Signs: Initial Vital Signs Pulse Rate 73 11/02/19 18:10 Respiratory Rate 18 11/02/19 18:10 Blood Pressure 190/82 11/02/19 18:10 O2 Sat by Pulse Oximetry 99 11/02/19 18:10 Pain Scale Pain Intensity 0 - Physical Exam General Appearance: no apparent distress, alert Eye Exam: PERRL/EOMI, eyes nml inspection Ears, Nose, Throat Exam: normal ENT inspection, TMs normal, pharynx normal, moist mucous membranes Neck Exam: normal inspection, non-tender, supple, full range of motion Respiratory Exam: normal breath sounds, lungs clear, No respiratory distress Cardiovascular Exam: regular rate/rhythm, normal heart sounds, normal peripheral pulses Gastrointestinal/Abdomen Exam: soft, No tenderness, No mass Pelvic Exam: normal external exam, No adnexal tenderness, No adnexal mass, No cervical motion tenderness, No vaginal bleeding, No uterine tenderness, No other (Dry vaginal ambrose. Difficult to insert speculum. No foul order. Otherwise normal-appearing anatomy.) Back Exam: normal inspection, normal range of motion, No CVA tenderness, No vertebral tenderness Extremity Exam: normal inspection, normal range of motion, pelvis stable Neurologic Exam: alert, oriented x 3, cooperative, chief ophthalmic technician II-XII nml as tested, normal mood/affect, sensation nml, No motor deficits Skin Exam: normal color, warm, dry Lymphatic Exam: No adenopathy SpO2 Interpretation: normal SpO2: 97 O2 Delivery: Room Air - Course Nursing assessment & vital signs reviewed: Yes Ordered Tests: Active Orders 24 hr Category Date Time Status UA W/RFX UR CULTURE Stat Lab 11/02/19 18:50 Completed Lab/Rad Data: Laboratory Results 11/02/19 Range/Units 18:50 Urine Color YELLOW (YELLOW) Urine Appearance SLIGHTLY CLOUDY (CLEAR) Urine pH 5.0 (5-6) Ur Specific [place] 1.019 (1.005-1.025) Urine Protein NEGATIVE (Negative) Urine Ketones NEGATIVE (NEGATIVE) Urine Blood NEGATIVE (0-5) Hank/ul Urine Nitrite NEGATIVE (NEGATIVE) Urine Bilirubin NEGATIVE (NEGATIVE) Urine Urobilinogen NEGATIVE (0-1) mg/dL Ur Leukocyte Esterase TRACE (NEGATIVE) Urine WBC (Auto) 3-5 (0-5) /HPF Urine RBC (Auto) NONE (0-2) /HPF U Hyaline Cast (Auto) 0-2 (0-2) /LPF U Epithel Cells (Auto) RARE (FEW) /HPF Urine Bacteria (Auto) NONE (NEGATIVE) /HPF Urine Mucus (Auto) SLIGHT (NEGATIVE) /HPF Urine Culture Reflexed NO (NO) Urine Glucose NEGATIVE (NEGATIVE) mg/dL - Progress Progress: improved Air Movement: good Progress Note: 11/02/19 21:00 . Patient reassessed. She feels well. No active pain. Patient declined pain medication. UA essentially negative. Pelvic exam completed with the assistance of RN. Oma candelario pending. Patient did not want to wait for results. We will discharge patient home and call patient with any positive findings. Patient states is ready for discharge. Patient agrees to follow-up with her primary care doctor within 48 hours for reevaluation. Blood Culture(s) Obtained: No Antibiotics given: No Counseled pt/family regarding: lab results, diagnosis, need for follow-up - Departure Departure Disposition: Home Clinical Impression: Vaginal pain Condition: Stable Critical Care Time: No Referrals: GRAYSON MONTOYA [Primary Care Provider] - Additional Instructions: Discharge/Care Plan OSVALDORYAN was seen on 11/02/19 in the Emergency Room. The patient was counseled regarding Diagnosis,Lab results, Imaging studies, need for follow up and when to return to the Emergency Room. Prescriptions given: Discharge Note I have spoken with the patient and/or caregivers. I have explained the patient's condition, diagnosis and treatment plan based on the information available to me at this time. I have answered the patient's and/or caregiver's questions and addressed any concerns. The patient and/or caregivers have as good understanding of the patient's diagnosis, condition and treatment plan as can be expected at t his point. The vital signs have been stable. The patient's condition is stable and appropriate for discharge from the emergency department. The patient will pursue further outpatient evaluation with the primary care physician or other designated or consulting physician as outlined in the discharge instructions. The patient and/or caregivers are agreeable to this plan of care and follow-up instructions have been explained in detail. The patient and/or caregivers have received these instruction. The patient/and or caregivers are aware that any significant change in condition or worsening of symptoms should prompt an immediate return to this or the closest emergency department or call 911.
[2019-11-02 21:04] VITALS: BP 168/85; PULSE 71; O2SAT 99
[2019-11-02 21:36] LABS: Clue Cells None Seen
[2019-11-02 21:37] LABS: Bacteria None Seen; Red Blood Cells None Seen; Trichomonas None Seen; White Blood Cells None Seen; Yeast None Seen
== END 2019-11-02 21:00 | disposition home or self-care (01) ==
LOC: ED 17:53
DX: R10.2 Pelvic and perineal pain (principal); Z79.899 Other long term (current) drug therapy; K21.9 Gastro-esophageal reflux disease without esophagitis
CPT/HCPCS: 81001; 87210; 99283

== ENCOUNTER 2024-10-11 06:30 | Emergency (ER) | payer MEDICARE, OTHER ==
[2024-10-11] MEDS ORDERED: MORPHINE SULFATE 2 MG INJ ONE (07:56)
[2024-10-11] MEDS ORDERED: Zofran 4 MG/2 ML VIAL ONE (07:56)
--- NOTE | 2024-10-11 08:01 | ERPHSYRPT ---
- History of Present Illness Time Seen by Provider: 10/11/24 07:57 Source: patient Exam Limitations: no limitations Patient Subjective Stated Complaint: Left sided rib pain Triage Nursing Assessment: Patient ambulated back to ED and transferred self to bed. Patient A+O X3. Patient's skin pink, warm and dry. Patient complains of left sided rib pain intermittent pain 8/10 since Friday. Patient denies recent injury or trauma. No bruising noted. Lungs clear a/p joe. Physician History: Patient is a 78-year-old female history of chronic atrial fibrillation on Eliquis presents to our ED for evaluation of left upper quadrant pain. Patient states pain started on Friday 2 days ago. Pain does present as an ache sometimes a sharp pain that is intermittent. Pain has gotten progressively worse. No trauma no fever. No associated shortness of breath. No chest pain. No nausea no diarrhea. Patient thinks it is possibly gastritis however is not sure. Symptoms are mild to moderate in intensity. No specific worsening or improving factors. Patient voices no other complaints or concerns at this time. Portions of this note were created with voice recognition technology. There may be grammatical, spelling, punctuation or sound alike errors Timing/Duration: day(s) (2 days ago) Severity: moderate Modifying Factors: Improves With: other Associated Symptoms: denies symptoms Allergies/Adverse Reactions: amoxicillin [Amoxicillin] Allergy (Mild, Verified 10/11/24 06:45) Diarrhea citalopram hydrobromide [From Celexa] Allergy (Mild, Verified 10/11/24 06:45) Rash itching,n/v sertraline HCl [From Zoloft] Allergy (Mild, Verified 10/11/24 06:45) Rash itching, n/v Home Medications: Cetirizine HCl [Zyrtec] 10 mg PO DAILY 12/13/13 [History] PANTOPRAZOLE 40 mg Tablet [Protonix 40MG Tablet] 40 mg PO DAILY 12/13/13 [History] Latanoprost [Xalatan] 2.5 ml OP HS 05/25/17 [History] Apixaban [Eliquis] 1 tab PO DAILY 10/11/24 [History] Meclizine HCl 25 mg [Antivert 25 mg] 1 tab PO Q6H PRN PRN 10/11/24 [History] Propranolol HCl [Inderal ] 0.5 mg PO BID 10/11/24 [History] Hx Tetanus, Diphtheria Vaccination/Date Given: No Hx Influenza Vaccination/Date Given: No Hx Pneumococcal Vaccination/Date Given: No Immunizations Up to Date: Yes Travel Risk - International Travel Have you traveled outside of the country in past 3 weeks: No - Emerging Infectious Disease Are you exhibiting symptoms associated with any current EIDs: No - Review of Systems Constitutional: No Symptoms, No Fever, No Chills Eyes: No Symptoms Ears, Nose, & Throat: No Symptoms Respiratory: No Symptoms, No Cough, No Dyspnea Cardiac: No Symptoms, No Chest Pain, No Edema, No Syncope Abdominal/Gastrointestinal: No Symptoms, No Abdominal Pain, No Nausea, No Vomiting, No Diarrhea Genitourinary Symptoms: No Symptoms, No Dysuria Musculoskeletal: No Symptoms, No Back Pain, No Neck Pain Skin: No Symptoms, No Rash Neurological: No Symptoms, No Dizziness, No Focal Weakness, No Sensory Changes Psychological: No Symptoms Endocrine: No Symptoms Hematologic/Lymphatic: No Symptoms Immunological/Allergic: No Symptoms All Other Systems: Reviewed and Negative - Past Medical History Pertinent Past Medical History: Yes Neurological History: No Pertinent History ENT History: Glaucoma Cardiac History: Arrhythmia, Hypertension Respiratory History: Sleep Apnea Endocrine Medical History: No Pertinent History Musculoskeletal History: Osteoarthritis GI Medical History: Diverticulitis, GERD History: No Pertinent History Psycho-Social History: No Pertinent History Female Reproductive Disorders: No Pertinent History Other Medical History: HEART PALPATION - Past Surgical History Past Surgical History: Yes Neuro Surgical History: No Pertinent History Cardiac: Cardiac Catheterization Respiratory: No Pertinent History Gastrointestinal: Cholecystectomy Genitourinary: No Pertinent History Musculoskeletal: No Pertinent History Female Surgical History: Section, Tubal Ligation Other Surgical History: tonsillectomy, Rhinoplasty with polyps removed, csection x2, uterine ablasion Significant Family History: hypertension - Social History Smoking Status: Never smoker Exposure to second hand smoke: No Drug Use: none - Social Determinants of Health Will the patient participate in the screening: Yes Do you worry about a steady place to live?: No Do you have any problems with any of the following?: No known problems In the past 12 months,have you had to go without utilities?: No Transportation Issues: No Has anyone in your support network made you feel unsafe?: No Have you or anyone in your house had to go w/o enough food: No - Nursing Vital Signs Nursing Vital Signs: Initial Vital Signs Temperature 97.2 F 10/11/24 06:46 Pulse Rate 67 10/11/24 06:46 Respiratory Rate 20 10/11/24 06:46 Blood Pressure 177/86 10/11/24 06:46 O2 Sat by Pulse Oximetry 99 10/11/24 06:46 Pain Scale Pain Intensity 0 - Physical Exam General Appearance: no apparent distress, alert Eye Exam: PERRL/EOMI, eyes nml inspection Ears, Nose, Throat Exam: normal ENT inspection, moist mucous membranes Neck Exam: normal inspection, other (Functional range of motion) Respiratory Exam: normal breath sounds, lungs clear, airway intact, No respiratory distress Cardiovascular Exam: regular rate/rhythm, normal heart sounds, normal peripheral pulses Gastrointestinal/Abdomen Exam: soft, normal bowel sounds, other (No tenderness to palpation left upper quadrant), No tenderness, No mass Back Exam: normal inspection, normal range of motion, No CVA tenderness, No vertebral tenderness Extremity Exam: normal inspection, normal range of motion, pelvis stable Neurologic Exam: alert, oriented x 3, cooperative, normal mood/affect, sensation nml, No motor deficits Skin Exam: normal color, warm, dry, No rash Lymphatic Exam: No adenopathy SpO2 Interpretation: normal SpO2: 99 O2 Delivery: Room Air - Course Nursing assessment & vital signs reviewed: Yes - CT Exams Abdomen/Pelvis CT Interpretation: Tele-radiologist Report (Sigmoid diverticulosis left renal cyst aortoiliac calcifications) Ordered Tests: Active Orders 24 hr Category Date Time Status [employer] Shift Lead STAT Care 10/11/24 07:41 Active EKG-ER Only STAT Care 10/11/24 07:40 Active IV Insertion STAT Care 10/11/24 07:40 Active Pulse Oximetry (ED) STAT Care 10/11/24 07:40 Active ABDOMEN AND PELVIS W/0 CONTRAS [CT] Stat Exams 10/11/24 07:42 Completed CBC W DIFF Stat Lab 10/11/24 08:06 Completed CMP Stat Lab 10/11/24 08:06 Completed NT PRO BNPII Stat Lab 10/11/24 08:06 Completed TROPONIN Q4H Lab 10/11/24 08:06 Completed TROPONIN Q4H Lab 10/11/24 10:51 Completed TROPONIN Q4H Lab 10/11/24 15:45 Ordered UA W/RFX UR CULTURE Stat Lab 10/11/24 08:02 Completed Medication Summary Discontinued Medications Generic Name Dose Route Start Last Admin Trade Name Jayden PRN Reason Stop Dose Admin Al Hydrox/Mg Hydrox/Simethicone Confirm 10/11/24 09:49 Mag Hydrox/Al Hydrox/Simeth 30 Ml Udcup Administered 10/11/24 09:50 Dose 30 ml .ROUTE .STK-MED ONE Lidocaine HCl Confirm 10/11/24 09:49 Lidocaine Hcl 2% Viscous 15 Ml Udcup Administered 10/11/24 09:50 Dose 15 ml .ROUTE .STK-MED ONE Magnesium Hydroxide 45 ml 10/11/24 09:40 10/11/24 09:49 Mag Hydrx/Alum Hyd/Simeth/Lido 45 Ml Bottle PO 10/11/24 09:41 45 ml STAT ONE Administration Morphine Sulfate 2 mg 10/11/24 07:42 10/11/24 08:02 Morphine Sulfate 2 Mg/Ml Inj IV 10/11/24 07:43 2 mg STAT ONE Administration Morphine Sulfate Confirm 10/11/24 07:56 Morphine Sulfate 2 Mg/Ml Inj Administered 10/11/24 07:57 Dose 2 mg .ROUTE .STK-MED ONE Ondansetron HCl 4 mg 10/11/24 07:42 10/11/24 08:02 Ondansetron Hcl 4 Mg/2 Ml Vial IV 10/11/24 07:43 4 mg STAT ONE Administration Ondansetron HCl Confirm 10/11/24 07:56 Ondansetron Hcl 4 Mg/2 Ml Vial Administered 10/11/24 07:57 Dose 4 mg .ROUTE .STK-MED ONE Pantoprazole Sodium 40 mg 10/11/24 09:40 10/11/24 09:50 Pantoprazole 40 Mg Vial IV 10/11/24 09:41 40 mg STAT ONE Administration Pantoprazole Sodium Confirm 10/11/24 09:49 Pantoprazole 40 Mg Vial Administered 10/11/24 09:50 Dose 40 mg IV .STK-MED ONE Lab/Rad Data: Laboratory Result Diagrams 10/11/24 08:06 10/11/24 08:06 Laboratory Results 10/11/24 10/11/24 10/11/24 Range/Units 10:51 08:06 08:06 WBC (3.98-10.04) x10^3/uL RBC (3.93-5.22) x10^6/uL Hgb (11.2-15.7) g/dL Hct (34.1-44.9) % MCV (79.4-94.8) fL MCH (25.6-32.2) pg MCHC (32.2-35.5) g/dL RDW (11.7-14.4) % Plt Count (182-369) x10^3/uL MPV (9.4-12.3) fL Gran % (34.0-71.1) % Immature Gran % (Auto) (0.001-0.429) % Nucleat RBC Rel Count (0.00-0.2) % Eos # (Auto) (0.04-0.36) x10^3/uL Immature Gran # (Auto) (0.001-0.031) x10^3u/L Absolute Lymphs (auto) (1.18-3.74) x10^3/uL Absolute Monos (auto) (0.24-0.86) x10^3/uL Absolute Nucleated RBC (0.00-0.012) x10^3u/L Lymphocytes % (19.3-51.7) % Monocytes % (4.7-12.5) % Eosinophils % (0.7-5.8) % Basophils % (0.1-1.2) % Absolute Granulocytes (1.56-6.13) x10^3/uL Basophils # (0.01-0.08) x10^3/uL Sodium 139 (135-145) mmol/L Potassium 3.9 (3.5-5.1) mmol/L Chloride 106 (98-107) mmol/L Carbon Dioxide 27 (22-30) mmol/L Anion Gap 9.5 (5-15) MEQ/L BUN 11 (7-17) mg/dL Creatinine 0.62 (0.52-1.04) mg/dL Estimated GFR 90.0 ML/MIN Glucose 113 H (74-106) mg/dL Calcium 9.2 (8.4-10.2) mg/dL Total Bilirubin 1.20 (0.2-1.3) mg/dL AST 20 (14-36) U/L ALT 10 (0-35) U/L Alkaline Phosphatase 57 (38-126) U/L Troponin I < 0.012 < 0.012 (0.000-0.033) ng/mL NT-Pro-B Natriuret Pep 261 (<300) pg/mL Serum Total Protein 6.3 (6.3-8.2) g/dL Albumin 3.7 (3.5-5.0) g/dL Urine Color (Yellow) Urine Appearance (Clear) Urine pH (4.6-8.0) Ur Specific [place] (1.005-1.030) Urine Protein (Negative) Urine Glucose (UA) (Negative) mg/dL Urine Ketones (Negative) Urine Blood (Negative) Urine Nitrite (Negative) Urine Bilirubin (Negative) Urine Urobilinogen (0.2) mg/dL Ur Leukocyte Esterase (Negative) U Hyaline Cast (Auto) (0-2) /LPF Urine Microscopic RBC (0-5) /HPF Urine Microscopic WBC (0-5) /HPF Ur Epithelial Cells (None Seen) /HPF Urine Bacteria (None Seen) /HPF Urine Culture Reflexed (NO) 10/11/24 10/11/24 Range/Units 08:06 08:02 WBC 3.0 L (3.98-10.04) x10^3/uL RBC 4.15 (3.93-5.22) x10^6/uL Hgb 13.4 (11.2-15.7) g/dL Hct 38.2 (34.1-44.9) % MCV 92.0 (79.4-94.8) fL MCH 32.3 H (25.6-32.2) pg MCHC 35.1 (32.2-35.5) g/dL RDW 12.1 (11.7-14.4) % Plt Count 186 (182-369) x10^3/uL MPV 9.4 (9.4-12.3) fL Gran % 47.3 (34.0-71.1) % Immature Gran % (Auto) 0.0 L (0.001-0.429) % Nucleat RBC Rel Count 0.0 (0.00-0.2) % Eos # (Auto) 0.06 (0.04-0.36) x10^3/uL Immature Gran # (Auto) 0.00 L (0.001-0.031) x10^3u/L Absolute Lymphs (auto) 1.15 L (1.18-3.74) x10^3/uL Absolute Monos (auto) 0.33 (0.24-0.86) x10^3/uL Absolute Nucleated RBC 0.00 (0.00-0.012) x10^3u/L Lymphocytes % 38.6 (19.3-51.7) % Monocytes % 11.1 (4.7-12.5) % Eosinophils % 2.0 (0.7-5.8) % Basophils % 1.0 (0.1-1.2) % Absolute Granulocytes 1.41 L (1.56-6.13) x10^3/uL Basophils # 0.03 (0.01-0.08) x10^3/uL Sodium (135-145) mmol/L Potassium (3.5-5.1) mmol/L Chloride (98-107) mmol/L Carbon Dioxide (22-30) mmol/L Anion Gap (5-15) MEQ/L BUN (7-17) mg/dL Creatinine (0.52-1.04) mg/dL Estimated GFR ML/MIN Glucose (74-106) mg/dL Calcium (8.4-10.2) mg/dL Total Bilirubin (0.2-1.3) mg/dL AST (14-36) U/L ALT (0-35) U/L Alkaline Phosphatase (38-126) U/L Troponin I (0.000-0.033) ng/mL NT-Pro-B Natriuret Pep (<300) pg/mL Serum Total Protein (6.3-8.2) g/dL Albumin (3.5-5.0) g/dL Urine Color Yellow (Yellow) Urine Appearance Clear (Clear) Urine pH 6.0 (4.6-8.0) Ur Specific [place] 1.015 (1.005-1.030) Urine Protein Negative (Negative) Urine Glucose (UA) Negative (Negative) mg/dL Urine Ketones Negative (Negative) Urine Blood Negative (Negative) Urine Nitrite Negative (Negative) Urine Bilirubin Negative (Negative) Urine Urobilinogen 1.0 A (0.2) mg/dL Ur Leukocyte Esterase Trace A (Negative) U Hyaline Cast (Auto) NONE SEEN (0-2) /LPF Urine Microscopic RBC 0-2 (0-5) /HPF Urine Microscopic WBC 0-2 (0-5) /HPF Ur Epithelial Cells None Seen (None Seen) /HPF Urine Bacteria None Seen (None Seen) /HPF Urine Culture Reflexed NO (NO) - Progress Progress: improved Progress Note: Patient reassessed at 9:38 AM. Pain significantly improved after morphine. However patient states she occasionally feels a "twinge" at her left upper quadrant. Patient believes it is her stomach. She is asking for stomach medication. I placed an order for a GI cocktail and Protonix. We are currently waiting for Trope #2. CT scan is essentially nonremarkable. However there was an air. Dr. Brown referenced a AAA which I believe is an error. I contacted the radiology department. They will discuss this with Dr. Brown. Dr. Brown will create an addendum as needed 78-year-old female presents to our ED for evaluation of left upper quadrant pain. The pain is intermittent. Patient is on Eliquis for chronic atrial fibrillation. She denies shortness of breath. No chest pain. Pain significantly improved after administration of morphine. No obvious explanation for patient's pain. May be musculoskeletal. However patient is requesting medication for her stomach. Patient received a GI cocktail and Protonix. We will repeat troponin at 10:30 AM. We are currently waiting for CT report addendum. Patient does not want additional pain medication at this time. However we will await troponin #2 CT report addendum and reassessed patient. Patient continues to feel well troponin #2's negative patient will be discharged home. EKG reveals sinus rhythm. No acute findings. Patient has a leukopenia of 3. Patient had a WBC count of 3.8 in December 2023. Patient is not aware of leukopenia however she was made aware of the low white blood cell count and states she will follow-up with her primary care doctor Dr. Montoya. Laboratory workup otherwise nonremarkable. Patient resting comfortably. She has no complaints at this time. Portions of this note were created with voice recognition technology. There may be grammatical, spelling, punctuation or sound alike errors Complexity of problem addressed is moderate acute complicated. No critical care time. Complex of data reviewed and analyzed as moderate. Test ordered test reviewed results analyzed and correlated clinically with history and physical exam. Risk of complication and or risk of morbidity/mortality patient management is moderate. Vital stable. Time spent to discharge patient approximately 15 minutes. Plan of care established for shared decision making. No social determinants of health present to impede follow-up. Portions of this note were created with voice recognition technology. There may be grammatical, spelling, punctuation or sound alike errors 10/11/24 09:41 Addendum completed. No AAA. Troponin negative x 2. Patient currently resting comfortably. No active pain. However patient states that pain occurs intermittently. Pain is under the left rib at the left upper quadrant. CAT scan essentially negative. We are not sure what is the cause of patient's pain vitals are stable. We contacted patient's primary care doctor Dr. Montoya. They will see her for early follow-up on October 13 at 11 AM. Portions of this note were created with voice recognition technology. There may be grammatical, spelling, punctuation or sound alike errors 10/11/24 11:51 Counseled pt/family regarding: lab results, diagnosis - Departure Departure Disposition: Home Clinical Impression: Left upper quadrant pain, Leukopenia Condition: Stable Critical Care Time: No Referrals: GRAYSON MONTOYA MD [Primary Care Provider, [facility]] - Follow up/PCP as directed Additional Instructions: Please follow-up with Dr. Montoya on October 13 at 11 AM Discharge/Care Plan RYAN RILEY was seen on 10/11/24 in the Emergency Room. The patient was counseled regarding Diagnosis,Lab results, Imaging studies, need for follow up and when to return to the Emergency Room. Prescriptions given: Discharge Note I have spoken with the patient and/or caregivers. I have explained the patient's condition, diagnosis and treatment plan based on the information available to me at this time. I have answered the patient's and/or caregiver's questions and addressed any concerns. The patient and/or caregivers have as good understanding of the patient's diagnosis, condition and treatment plan as can be expected at this point. The vital signs have been stable. The patient's condition is stable and appropriate for discharge from the emergency department. The patient will pursue further outpatient evaluation with the primary care physician or other designated or consulting physician as outlined in the discharge instructions. The patient and/or caregivers are agreeable to this plan of care and follow-up instructions have been explained in detail. The patient and/or caregivers have received these instruction. The patient/and or caregivers are aware that any significant change in condition or worsening of symptoms should prompt an immediate return to this or the closest emergency department or call 911.
[2024-10-11] MEDS: MORPHINE SULFATE 2 MG INJ IV ONE (08:02)
[2024-10-11] MEDS: Zofran 4 MG/2 ML VIAL IV ONE (08:02)
[2024-10-11 08:04] LABS: BASOPHIL % 1.0 % (0.1-1.2); Basophil (Absolute #) 0.03 x10^3/uL (0.01-0.08); Eosinophil (Absolute #) 0.06 x10^3/uL (0.04-0.36); Hematocrit 38.2 % (34.1-44.9); Hemoglobin 13.4 g/dL (11.2-15.7); IMMATURE GRAN # 0.00 x10^3u/L (0.001-0.031); IMMATURE GRAN % 0.0 % (0.001-0.429); Lymphocyte (Absolute #) 1.15 x10^3/uL (1.18-3.74); Mean Corpuscular Hemoglobin 32.3 pg (25.6-32.2); Mean Corpuscular Hgb Concent. 35.1 g/dL (32.2-35.5); Monocyte (Absolute #) 0.33 x10^3/uL (0.24-0.86); NUCLEATED RBC # 0.00 x10^3u/L (0.00-0.012); NUCLEATED RBC % 0.0 % (0.00-0.2); Platelet Count 186 x10^3/uL (182-369); Red Blood Count 4.15 x10^6/uL (3.93-5.22); White Blood Count 3.0 x10^3/uL (3.98-10.04)
[2024-10-11 08:10] LABS: Glucose, Urine Negative (Negative); Protein,Urine Dip Negative (Negative); RBC 0-2 /HPF (0-5); WBC 0-2 /HPF (0-5)
[2024-10-11 08:28] LABS: Calcium 9.2 mg/dL (8.4-10.2); Carbon Dioxide 27.0 mmol/L (22-30); Creatinine 1 0.62 mg/dL (0.52-1.04); EST GLOMERULAR FILTRATION RATE 90.0 ML/MIN; Glucose 113.0 mg/dL (74-106); NT PRO BNPII 261.0 pg/mL (<300); Potassium 3.9 mmol/L (3.5-5.1); SGOT/AST 20.0 U/L (14-36); SGPT/ALT 10.0 U/L (0-35); Total Protein 6.3 g/dL (6.3-8.2)
--- NOTE | 2024-10-11 09:29 | XRAY ---
Indication: Abdomen/rib pain. Multiple contiguous axial images obtained through the abdomen and pelvis without contrast. Comparison: November 12, 2019 Lung bases again demonstrates mild dependent atelectasis. No infiltrate or effusion. Heart not enlarged. Noncontrasted stomach and bowel loops appear nonobstructed with normal appendix. Again scattered sigmoid diverticulosis, small left parapelvic renal cysts, and cholecystectomy. No free fluid/air. Remaining liver, pancreas, spleen, adrenal glands, kidneys, ureters, bladder, and uterus are unremarkable for noncontrast exam. Again mild scattered aortoiliac calcifications with AAA. Osseous structures intact again with osteopenia, mild/moderate multilevel degenerative spondylosis, minimal grade 1 L4 listhesis, and mild levoscoliosis. No ventral or inguinal hernias. Impression: 1. Again chronic findings including sigmoid diverticulosis, left renal cysts, arteriosclerotic disease, and chronic bony findings. 2. No new/acute findings on this noncontrast exam.
[2024-10-11] MEDS ORDERED: XYLOCAINE VISCOUS 2% 15 ML CUP ONE (09:49)
[2024-10-11] MEDS: GI COCKTAIL 45 ML (Maalox/Lidocaine) PO ONE (09:49)
[2024-10-11] MEDS ORDERED: MAALOX ES 30 ML UNIT DOSE ONE (09:49)
[2024-10-11] MEDS ORDERED: PROTONIX 40 MG IV IV ONE (09:49)
[2024-10-11] MEDS: PROTONIX 40 MG IV IV ONE (09:50)
[2024-10-11 11:54] VITALS: O2SAT 99
[2024-10-11 12:05] VITALS: RESP 16
[2024-10-11 12:06] VITALS: BP 130/68; PULSE 70; TEMP 97
== END 2024-10-11 12:07 | disposition home or self-care (01) ==
LOC: ED 06:30
DX: R10.12 Left upper quadrant pain (principal); D72.819 Decreased white blood cell count, unspecified; I10 Essential (primary) hypertension; Z79.01 Long term (current) use of anticoagulants; Z79.899 Other long term (current) drug therapy